=== PATIENT | female | born 1960 | race Caucasian/White ===

== ENCOUNTER → 2023-09-10 06:37 | Day surgery (SDC) | payer OTHER, SELFPAY | LOC: GI 06:37 | PROVIDERS: ATTENDING PHYSICIAN Internal Medicine Gastroenterology; FAMILY PHYSICIAN Family Medicine | DX: R12 Heartburn (principal); K31.89 Other diseases of stomach and duodenum | CPT/HCPCS: 43239; 88305; 88342 ==

== ENCOUNTER → 2024-10-03 07:52 | Outpatient (REF) | payer OTHER, SELFPAY | LOC: HWWDC 07:52 | PROVIDERS: ATTENDING PHYSICIAN Family Medicine; FAMILY PHYSICIAN Family Medicine | DX: Z12.31 Encounter for screening mammogram for malignant neoplasm of breast (principal) | CPT/HCPCS: 77063; 77067 ==